=== PATIENT | male | born 1955 | race Caucasian/White ===

== ENCOUNTER → 2021-12-23 11:13 | Outpatient (CLI) | payer MEDICARE, OTHER, SELFPAY | PROVIDERS: PCP Internal Medicine; Referring Provider Internal Medicine; Visit Provider Internal Medicine | DX: K76.0 Fatty (change of) liver, not elsewhere classified (principal) ==

== ENCOUNTER → 2021-12-24 10:53 | Outpatient (CLI) | payer MEDICARE, OTHER, SELFPAY ==
--- NOTE | 2021-12-24 | DI.US.S_ITS ---
PROCEDURE: US ABDOMEN LIMITED INDICATIONS: FATTY CHANGE OF LIVER TECHNIQUE: Real-time focused scanning was performed of the abdomen, with image documentation. COMPARISON: None. FINDINGS: The liver appears increased in echogenicity although evaluation is limited by absence of comparison image with the kidney. No focal hepatic lesions identified. Gallbladder demonstrates no stones, wall thickening, or pericholecystic fluid. No definite intrahepatic biliary ductal dilatation. The extrahepatic ducts were not well seen due to bowel gas. The pancreas was not well seen sonographically due to bowel gas. IMPRESSION: 1. Limited study demonstrates probable increased hepatic echogenicity suggestive of steatosis. 1. No evidence of cholelithiasis or cholecystitis. Dictated by: Steve Pimentel M.D. on 12/24/2021 at 17:16 Approved by: Steve Pimentel M.D. on 12/24/2021 at 17:19
== END ==
PROVIDERS: PCP Internal Medicine; Referring Provider Internal Medicine; Visit Provider Internal Medicine
DX: K76.0 Fatty (change of) liver, not elsewhere classified (principal)
CPT/HCPCS: 76705